=== PATIENT | male | born 1990 | race Caucasian/White ===

== ENCOUNTER 2016-10-25 10:22 | Emergency (ER) | payer SELFPAY ==
[2016-10-25 10:53] VITALS: BP 119/77
[2016-10-25] MEDS ORDERED: MOTRIN PO ONE (13:08)
[2016-10-25] MEDS ORDERED: KEFLEX PO ONE (13:08)
[2016-10-25] MEDS ORDERED: BOOSTRIX IM ONE (13:08)
--- NOTE | 2016-10-25 13:28 | Emergency Department Report ---
Upper Extremity - HPI Chief Complaint: Extremity Injury, Upper Stated Complaint: LT HAND /THUMB LAC Time Seen by Provider: 10/25/16 13:01 Upper Extremity: Left Thumb (left thumb pad) Occurred When: 1 Day (yesterday 4PM) Severity: mild Symptoms: Yes Deformity, No Pain with Movement, No Limited Range of Movement, No Numbness, No Weakness, No Swelling, No Bruising/Ecchymosis, No Laceration or Abrasion Other History: 26-year-old male past medical history none, unknown tetanus vaccine status presents with complaint of laceration to left thumb pad. Patient states yesterday he was using an electric saw and accidentally grazed the tip of his finger with a saw. Visible missing segment of skin at distal thumb tuft. No visible exposed bone no active bleeding. Occurred yesterday at 4:30 PM while at work. Patient denies any other injuries is able to fully range his thumb. ED Review of Systems ROS: Stated complaint: LT HAND /THUMB LAC Other details as noted in HPI Constitutional: denies: chills, fever Eyes: denies: eye pain, eye discharge, vision change ENT: denies: ear pain, throat pain Respiratory: denies: cough, shortness of breath, wheezing Cardiovascular: denies: chest pain, palpitations Endocrine: no symptoms reported Gastrointestinal: denies: abdominal pain, nausea, diarrhea Genitourinary: denies: urgency, dysuria Musculoskeletal: denies: back pain, joint swelling, arthralgia Skin: denies: rash, lesions Neurological: denies: headache, weakness, paresthesias Psychiatric: denies: anxiety, depression Hematological/Lymphatic: denies: easy bleeding, easy bruising ED Past Medical Hx - Past Medical History Previous Medical History?: No - Surgical History Past Surgical History?: No - Social History Smoking Status: Never Smoker Substance Use Type: None - Medications Home Medications: Home Medications Medication Instructions Recorded Confirmed Last Taken Type Cephalexin [Keflex] 500 mg PO ONCE #20 capsule 10/25/16 Unknown Rx Ibuprofen [Motrin 600 MG tab] 600 mg PO ONCE PRN #30 tablet 10/25/16 Unknown Rx Sulfamethoxazole/Trimethoprim 1 each PO BID #14 tablet 10/25/16 Unknown Rx [Bactrim DS TAB] Upper Extremity Exam - Exam General: Vital signs noted. No distress. Alert and acting appropriately. Head and Torso: No HEENT Abnormality, No Neck Tenderness, No Chest/Lungs Abnormality, No Abdominal Tenderness, No Back Tenderness Shoulder Exam: Yes Normal Range of Motion in Shoulder, No Shoulder Tenderness, No Clavicle Tenderness, No Shoulder Deformity, No AC Joint Tenderness Arm Exam: No Arm/Humerus Tenderness, No Arm Deformity Elbow: No Elbow Tenderness, No Normal Range of Motion in Elbow, No Elbow Deformity Forearm: No Forearm Tenderness, No Forearm Deformity, No Pain with Pronation, No Pain with Supination Wrist: Yes Normal ROM in Wrist, No Wrist Tenderness, No Wrist Deformity, No Snuffbox Tenderness, No Pain with Axial Thumb Compression Hand: Yes Hand Tenderness, Yes Normal ROM in Digit(s) (capillary refill less than 1 second, range of motion thumb flexion and extension at MCP and DIP intact ), No Hand Deformity, No Digit Tenderness, No Digit(s) Deformity, No Tendon Dysfunction CMS Exam: Yes Normal Capillary Refill (capillary refill less than one second all fingers), Yes Normal Distal Sensation (sensation all fingers intact), No Broken Skin, No Normal Distal Pulses Hand L/R Front: 1 - Correcting shaped avulsion laceration here approximately 1 cm long by half a Center with a wide. ED Course Vital Signs 10/25/16 10:49 Temperature 98.5 F Pulse Rate 64 Respiratory 18 Rate Blood Pressure 119/77 O2 Sat by Pulse 100 Oximetry ED Medical Decision Making - Medical Decision Making A/P: Anger took Laceration 1- Wound dressed with Xeroform gauze. Thighs patient to change dressings daily at least twice a day and Cipro Pl., Xeroform at home one to 2 times a day over laceration site. Patient stated he understood these instructions. 2-tetanus updated 3-Motrin when necessary, triple antibiotic ointment, patient instructed on acute wound care, Bactrim and Keflex 4-patient's advised to return to the ED for any fevers chills pus drainage erythema at site of laceration. referred to orthopedics and primary care Critical care attestation.: If time is entered above; I have spent that time in minutes in the direct care of this critically ill patient, excluding procedure time. ED Disposition Clinical Impression: Fingertip avulsion Qualifiers: Encounter type: initial encounter Qualified Code(s): S61.209A - Unspecified open wound of unspecified finger without damage to nail, initial encounter Disposition: TO HOME OR SELFCARE Is pt being admited?: No Does the pt Need Aspirin: No Condition: Stable Instructions: Laceration (ED), Acute Wound Care (ED), Finger Laceration (ED) Prescriptions: Cephalexin [Keflex] 500 mg PO ONCE #20 capsule Ibuprofen [Motrin 600 MG tab] 600 mg PO ONCE PRN #30 tablet PRN Reason: Pain Sulfamethoxazole/Trimethoprim [Bactrim DS TAB] 1 each PO BID #14 tablet Referrals: CAMILA SALAZAR MD [Staff Physician] - 3-5 Days [facility] [Outside] - 3-5 Days Forms: Accompanied Note, Work/School Release Form(ED) Print Language: [place]ET[place]
== END 2016-10-25 14:32 | disposition home or self-care (01) ==
LOC: ED 10:22
DX: S61.112A Laceration without foreign body of left thumb with damage to nail, initial encounter (principal); X58.XXXA Exposure to other specified factors, initial encounter; Y93.89 Activity, other specified; Y99.8 Other external cause status; Y92.89 Other specified places as the place of occurrence of the external cause
CPT/HCPCS: 90471; 90715